=== PATIENT | female | born 1965 | race Caucasian/White ===

== ENCOUNTER → 2019-02-10 | Outpatient (CLI) | payer BC ==
[2019-02-10 09:53] VITALS: BP 116/80; PULSE 74; RESP 18; TEMP 98; BMI 44.4
--- NOTE | 2019-02-10 10:26 | P.GSHP ---
History of Present Illness H&P Date: 02/10/19 Chief Complaint: abnormal mammogram Meredith is a 53-year-old white female who presents for breast evaluation. She had a bilateral mammogram performed on there was some increased thickness of the skin and also some increased density in the retroareolar region of the right breast seen on MLO but not clearly seen on the craniocaudal colon down view. Impression was questionable density at the retroareolar region of the right breast with evidence of skin thickening and recommendation was a diagnostic mammogram. This was performed on . This revealed probable benign with findings BIRADS 3 and a short-term follow-up right breast in 6 months was recommended. Nothing of concern was noted in the left breast. The patient states that she was noted thickening of the skin of her right breast in the medial aspect of the right breast since spring of this year. She has not noted any lumps or masses in her breast. She has not had any nipple discharge, no infection in the breast, and no trauma in the breast. Family History: 1. maternal grandfather: leukemia 2. sister: cystic fibrosis 3. paternal uncle: cancer ? type Hormonal History: menarche: 13 , brast fed: no, age at first: 25 menopause: starting now, periods irregular BCP: 2 years hormones: none Past surgical history: 1. Tubal ligation 2. Uterine ablation Medical history: 1. high cholesterol 2. Borderline diabetic Social history: Smoke: Negative Alcohol: Occasional Drugs: Negative - Constitutional Constitutional: Reports sweats - EENT Eyes: bilateral blurred vision, denies pain Ears: deny: decreased hearing, tinnitus Ears, nose, mouth and throat: Denies headache, Denies sore throat - Breasts Breasts: bilateral: as per HPI - Cardiovascular Comment: High cholesterol - Respiratory Respiratory: Denies cough, Denies 7 - Gastrointestinal Comment: hiatal hernia - Genitourinary (Female) Genitourinary: Denies dysuria, Denies hematuria - Menstruation Menstruation: Reports menses variable - Musculoskeletal Comment: back pain - Integumentary Comment: thickened skin of hte right breast - Neurological Neurological: Denies numbness, Denies weakness - Psychiatric Psychiatric: Reports anxiety, Reports depression - Endocrine Comment: pre-Diabetic Endocrine: Reports weight change - Hematologic/Lymphatic Comment: none - Allergic/Immunologic Allergic/Immunologic: Reports seasonal allergies Past Medical History History of Any Multi-Drug Resistant Organisms: None Reported Smoking Status: Former smoker Medications and Allergies Home Medications Medication Instructions Recorded Confirmed Type Escitalopram [Lexapro] 10 mg PO DAILY 02/10/19 02/10/19 History Naratriptan HCl [Amerge] 2.5 mg PO DAILY PRN 02/10/19 02/10/19 History Allergies Allergy/AdvReac Type Severity Reaction Status Date / Time naproxen [From Naprosyn] Allergy Vomiting Unverified 02/10/19 09:47 Surgical - Exam Vital Signs Temp Pulse Resp BP Pulse Ox 98.0 F 74 18 116/80 98 02/10/19 09:49 02/10/19 09:49 02/10/19 09:49 02/10/19 09:49 02/10/19 09:49 BMI 44.4 - General well developed, well nourished, no distress - Eyes normal ocular movement - ENT no hearing loss, no congestion - Neck trachea midline - Respiratory normal respiratory effort, clear to auscultation - Cardiovascular Rhythm: regular Heart Sounds: normal: S1, S2 - Abdomen Abdomen: soft, non tender, no guarding, no rigid, no rebound - Integumentary thickening of skin medial aspect of the right breast with some mild questionable folliculitis No other skin lesions of concern - Neurologic normal coordination - Musculoskeletal normal gait, normal posture - Psychiatric oriented to time, oriented to person, oriented to place, speech is normal, memory intact Breast examination: Right breast: Multi-positional exam fibro-cystic changes, no dominant masses or nodules of concern, in the medial aspect of the breast at approximately 3:00 there is some questionable thickening of the skin with some questionable mild folliculitis, no obvious infection Right axilla: No adenopathy of concern Left breast: Multi-positional exam no dominant masses or nodules of concern Left axilla: No adenopathy of concern Results Mammogram report reviewed Assessment and Plan Assessment: Impression: 1. Abnormal right breast mammogram 2. Questionable mild thickening medial aspect of the right breast at 3:00 3. Fibrocystic breast changes 4. Family history of cancer 5. High cholesterol 6. Anxiety/depression 7. Borderline diabetic 8. BMI 44.4 Plan: 1. Punch biopsy of thickened skin of the right breast 2. Medical management of medical conditions 3. Repeat right breast mammogram at 6 months with physician exam at that time Depending on results of the Punch biopsy of that the skin of the breast further recommendation to follow CC: DR. Karey Calhoun
== END ==
LOC: WWCWWP 09:30
PROVIDERS: ATTEND Surgery
DX: Z53.9 Procedure and treatment not carried out, unspecified reason (principal)

== ENCOUNTER → 2019-03-02 | Outpatient (CLI) | payer BC ==
[2019-03-02 12:13] VITALS: BP 124/81; PULSE 67; RESP 16; TEMP 97.6; BMI 43.4
--- NOTE | 2019-03-02 12:43 | P.PCN ---
Date of Procedure: 03/02/19 Preoperative Diagnosis: Skin thickening right breast Postoperative Diagnosis: same Procedure(s) Performed: Punch biopsy right breast Anesthesia: local Surgeon: Ana Humphries Pathology: other (3 mm punch biopsy of skin) Condition: stable Disposition: same day Indications for Procedure: Thickend skin medial aspect right breast Operative Findings: thick Skin Description of Procedure: The area of concern was in the 3 o'clock position of the right breast. There was thickened skin at this site. The area of concern was prepped using Betadine. 1% lidocaine was used to anesthetize the area of concern. A 3 mm punch biopsy was used to obtain a sample. The area had some oozing and therefore a nylon suture was placed. Patient tolerated procedure in stable condition. Specimen sent to pathology. Patient will follow-up next week.
--- NOTE | 2019-03-07 12:13 | P.PN ---
Progress Note - Text Progress Note Date: 03/07/19 The patient underwent a core biopsy of an area of thickening in the right breast and [id number]. The pathology revealed benign sebaceous hyperplasia with follicular plugging. The patient states that since that time she has had increased erythema near the region of the biopsy. She does not complain of any fever or chills. She does not complain of pain at the site but some mild discomfort. The patient is going to be started on an antibiotic will be seen in 2 days. I discussed this with the patient over the telephone. Should this get worse the patient will call again or go to the emergency room.
== END | disposition home or self-care (01) ==
LOC: WWCWWP 11:57
PROVIDERS: ATTEND Surgery
DX: N60.89 Other benign mammary dysplasias of unspecified breast (principal)
CPT/HCPCS: 88305

== ENCOUNTER → 2019-03-09 | Outpatient (CLI) | payer BC ==
[2019-03-09 07:33] VITALS: BP 113/73; PULSE 72; RESP 20; TEMP 98; BMI 43.4
--- NOTE | 2019-03-09 07:49 | P.PN ---
Subjective Progress Note Date: 03/09/19 Principal diagnosis: Skin thickening Meredith is a 53-year-old white female who presented for breast evaluation. She had a bilateral mammogram performed on there was some increased thickness of the skin and also some increased density in the retroareolar region of the right breast seen on MLO but not clearly seen on the craniocaudal colon down view. Impression was questionable density at the retroareolar region of the right breast with evidence of skin thickening and recommendation was a diagnostic mammogram. This was performed on . This revealed probable benign with findings BIRADS 3 and a short-term follow-up right breast in 6 months was recommended. Nothing of concern was noted in the left breast. The patient states that she was noted thickening of the skin of her right breast in the medial aspect of the right breast since spring of this year. She has not noted any lumps or masses in her breast. She has not had any nipple discharge, no infection in the breast, and no trauma in the breast. The patient underwent a right breast punch biopsy of the thickened area of skin on 03-02-19. The pathology revealed benign sebaceous hyperplasia with follicular plugging. The patient approximately 3 days after the procedure noted some erythema of the medial breast near the site, she did not have any fever and this was not painful but uncomfortable. She was started on Keflex. She then stated that she noted some oozing from the site and what appeared to be some purulence. Again the patient did not have any fever or chills. The area of erythema decreased after starting the Keflex. Family History: 1. maternal grandfather: leukemia 2. sister: cystic fibrosis 3. paternal uncle: cancer ? type Hormonal History: menarche: 13 , brast fed: no, age at first: 25 menopause: starting now, periods irregular BCP: 2 years hormones: none Past surgical history: 1. Tubal ligation 2. Uterine ablation Medical history: 1. high cholesterol 2. Borderline diabetic Social history: Smoke: Negative Alcohol: Occasional Drugs: Negative - Constitutional Constitutional: Reports sweats - EENT Eyes: bilateral blurred vision, denies pain Ears: deny: decreased hearing, tinnitus Ears, nose, mouth and throat: Denies headache, Denies sore throat - Breasts Breasts: bilateral: as per HPI - Cardiovascular Comment: High cholesterol - Respiratory Respiratory: Denies cough, Denies 7 - Gastrointestinal Comment: hiatal hernia - Genitourinary (Female) Genitourinary: Denies dysuria, Denies hematuria - Menstruation Menstruation: Reports menses variable - Musculoskeletal Comment: back pain - Integumentary Comment: thickened skin of hte right breast - Neurological Neurological: Denies numbness, Denies weakness - Psychiatric Psychiatric: Reports anxiety, Reports depression - Endocrine Comment: pre-Diabetic Endocrine: Reports weight change - Hematologic/Lymphatic Comment: none - Allergic/Immunologic Allergic/Immunologic: Reports seasonal allergies Objective - Vital Signs Vital signs: Intake & Output 03/08/19 03/09/19 03/09/19 18:59 06:59 18:59 Weight 104.326 kg - Exam BMI 43.5 - Constitutional General appearance: Present: obese - EENT Eyes: Present: EOMI ENT: Present: hearing grossly normal - Neck Neck: Present: normal ROM - Respiratory Respiratory: bilateral: CTA - Cardiovascular Rhythm: regular Heart sounds: normal: S1, S2 - Integumentary Integumentary Comment(s): Mild erythema right breast medial aspect patient states this is decreased since she started the Keflex Punch biopsy site with [address] the area of the site has some necrotic appearing tissue and questionable purulence The sutures were removed and cultures were obtained, these were aerobic and anaerobic The necrotic tissue was debrided using the forcips Area of the punch biopsy site was approximately 8 mm x 8 mm - Musculoskeletal Musculoskeletal: Present: gait normal - Psychiatric Psychiatric: Present: A&O x's 3, appropriate affect, intact judgment & insight Assessment and Plan Assessment: Impression: 1. Patient status post right breast core biopsy of area of skin thickening related, pathology revealed follicular plugging with sebaceous hyperplasia 2. Post punch biopsy patient developed some erythema and drainage from the biopsy site, the erythema improved after patient was started on Keflex 3. Family history of cancer 4. High cholesterol 5. Anxiety/depression 6. Borderline diabetic 7. Obesity BMI 43.5 Plan: 1. Cultures obtained of the results 2. Continue Keflex 3. Most likely appointment with dermatology 4. Follow up here in 1 week 5. Patient is to call immediately if any questions or concerns Cc: Dr. Calhoun
== END ==
LOC: WWCWWP 07:01
PROVIDERS: ATTEND Surgery
DX: N64.9 Disorder of breast, unspecified (principal)
CPT/HCPCS: 87070; 87075; 87205